=== PATIENT | female | born 1950 | race Caucasian/White ===

== ENCOUNTER 2021-01-10 09:08 | Outpatient (CLI) | payer MEDICARE, BC | END 2021-01-10 09:09 | disposition home or self-care (01) | LOC: CSHMAMMO 09:08 | PROVIDERS: ATTEND Internal Medicine | DX: Z12.31 Encounter for screening mammogram for malignant neoplasm of breast (principal) | CPT/HCPCS: 77063; 77067 ==

== ENCOUNTER 2022-01-20 09:44 | Outpatient (CLI) | payer MEDICARE, BC | END 2022-01-20 09:45 | disposition home or self-care (01) | LOC: CSHMAMMO 09:44 | PROVIDERS: ATTEND Internal Medicine | DX: Z12.31 Encounter for screening mammogram for malignant neoplasm of breast (principal) | CPT/HCPCS: 77063; 77067 ==

== ENCOUNTER 2022-06-05 07:57 | Outpatient (CLI) | payer MEDICARE, BC | END 2022-06-05 07:58 | disposition home or self-care (01) | LOC: CSHULT 07:57 | PROVIDERS: ATTEND Internal Medicine | DX: R10.33 Periumbilical pain (principal) | CPT/HCPCS: 76700 ==

== ENCOUNTER 2024-04-13 10:10 | Outpatient (CLI) | payer MEDICARE | END 2024-04-13 10:11 | disposition home or self-care (01) | LOC: CSHMAMMO 10:10 | PROVIDERS: ATTEND Internal Medicine | DX: Z12.31 Encounter for screening mammogram for malignant neoplasm of breast (principal); Z80.3 Family history of malignant neoplasm of breast; Z91.89 Other specified personal risk factors, not elsewhere classified | CPT/HCPCS: 77063; 77067 ==

== ENCOUNTER 2024-06-30 12:51 | Outpatient (CLI) | payer MEDICARE, BC | END 2024-06-30 12:52 | disposition home or self-care (01) | LOC: CSHMAMMO 12:51 | PROVIDERS: ATTEND Nurse Practitioner | DX: Z78.0 Asymptomatic menopausal state (principal); M81.0 Age-related osteoporosis without current pathological fracture; M85.852 Other specified disorders of bone density and structure, left thigh | CPT/HCPCS: 77080 ==

== ENCOUNTER 2024-08-23 08:18 | Outpatient (CLI) | payer OTHER | END 2024-08-23 08:19 | disposition home or self-care (01) | LOC: CSHCT 08:18 | PROVIDERS: ATTEND Internal Medicine | DX: E78.00 Pure hypercholesterolemia, unspecified (principal); I25.10 Atherosclerotic heart disease of native coronary artery without angina pectoris | CPT/HCPCS: 75571 ==